=== PATIENT | female | born 2000 | race Two or more races ===

== ENCOUNTER 2023-09-09 11:28 | Inpatient (IN) | payer MEDICAID, OTHER ==
[~2023-09-09] VITALS: Ht 167.6 cm; Wt 95.2 kg
[2023-09-09] MEDS: METOPROLOL TARTRATE 25 MG TAB PO SCH (02:45)
[2023-09-09] MEDS: ACETAMINOPHEN 500 MG TAB PO ONE (11:56)
[2023-09-09 11:57] LABS: Basophils # (auto) 0 10 ^3/uL (0-0.2); Basophils % (auto) 0.6 % (0.0-2.0); Eosinophils # (auto) 0 10 ^3/uL (0-0.8); Eosinophils % (auto) 0.2 % (0.0-7.0); Hematocrit 39.4 % (36.0-46.0); Hemoglobin 13.2 g/dL (12.2-16.2); Lymphocytes # (auto) 0.5 10 ^3/uL (0.4-5.4); Lymphocytes % (auto) 13.5 % (10.0-50.0); Mean Corpuscular Hemoglobin 30.2 pg (28.0-32.0); Mean Corpuscular Hgb Conc. 33.6 g/dL (32.0-36.0); Monocytes # (auto) 0.3 10 ^3/uL (0-1.3); Monocytes % (auto) 8.3 % (0.0-12.0); Neutrophils # (auto) 2.9 10 ^3/uL (1.6-8.6); Neutrophils % (auto) 77.4 % (37.0-80.0); Nucleated Red Blood Cells % 0.2 %; Red Blood Cells 4.37 10^6/uL (4.0-5.20); Red Cell Distribution Width 12.8 % (11.8-14.3); White Blood Cell 3.7 10^3/uL (4.4-10.8)
[2023-09-09 12:03] LABS: Urine Bacteria None Seen /hpf (None Seen)
[2023-09-09 12:08] LABS: Urine Blood Negative /uL (Negative); Urine Clarity Clear (Clear); Urine Color Light-Yellow (Yellow); Urine Protein, UAD Negative (Negative); Urine Specific Gravity 1.012 (1.001-1.035); Urine Urobilinogen Normal (Negative); Urine WBC 1 /hpf (0 - 5)
[2023-09-09 12:18] LABS: Chloride 106 mmol/L (98-107); Potassium 3.8 mmol/L (3.5-5.1); Sodium 138 mmol/L (136-145)
[2023-09-09 12:19] LABS: Anion Gap 8 (5-15); Calcium 9.6 mg/dL (8.5-10.1); Carbon Dioxide 24 mmol/L (20-30)
[2023-09-09 12:24] LABS: BUN/Creatinine Ratio 7.9 (10.0-20.0); Blood Urea Nitrogen 6 mg/dL (9-23); Glucose 113 mg/dL (74-106)
[2023-09-09] MEDS: cefTRIAXone 1GM/50ML D5W 50 ML IV ONE (12:43)
[2023-09-09] MEDS: IOHEXOL 350 MG/ML 100ML IJ ONE (12:48)
[2023-09-09] MEDS ORDERED: HYDROcodone-ACET 5/325MG TAB PO PRN (14:45)
[2023-09-09] MEDS ORDERED: ONDANSETRON HCL 4 MG/2 ML VIAL IV PRN (14:45)
[2023-09-09] MEDS ORDERED: MORPHINE SULFATE INJ 2 MG/ml SYRG IV PRN (14:45)
[2023-09-09] MEDS: SODIUM CHLORIDE 0.9% 1,000 ML IV SCH (15:15)
[2023-09-09] MEDS: SODIUM CHLORIDE 0.9% 1,800 ML IV ONE (15:59)
[2023-09-09] MEDS: PANTOPRAZOLE 40 MG/10 ML VIAL INJ IV ONE (16:04)
[2023-09-09 16:05] LABS: Magnesium 1.8 mg/dL (1.6-2.6)
[2023-09-09] MEDS: MAGNESIUM OXIDE 400 MG TAB PO ONE (16:05)
[2023-09-09] MEDS: METOPROLOL TARTRATE 25 MG TAB PO ONE (16:05)
[2023-09-09] MEDS: AZITHROMYCIN 500MG/ 250ML 250 ML IV ONE (16:10)
[2023-09-09 16:26] VITALS: PULSE 91; RESP 18; O2SAT 98
[2023-09-09 16:30] LABS: Erythrocyte Sedimentation Rate 11 mm/hr (0-20)
[2023-09-09 18:05] LABS: Amphetamine Screen, Urine Neg (NEGATIVE)
[2023-09-09 18:06] LABS: Barbiturate Scree,Urine Neg (NEGATIVE); Benzodiazephine Screen, Urine Neg (NEGATIVE); Cocaine Screen, Urine Neg (NEGATIVE); Opiate Scree,Urine Neg (NEGATIVE); Phencyclidine Screen, Urine Neg (NEGATIVE)
[2023-09-09 18:07] LABS: Cannabinoid Screen, Urine Neg (NEGATIVE)
[2023-09-09 19:49] LABS: COVID19 ANTIGEN SOFIA FIA NEGATIVE (NEGATIVE)
[2023-09-09] MEDS: ACETAMINOPHEN 325 MG TAB PO PRN (20:47)
[2023-09-10] VITALS (9 sets, daily range): BP systolic 103–126; BP diastolic 60–80; PULSE 70–107; RESP 16–21; TEMP 97.7–99; O2SAT 97–100
[2023-09-10] MEDS: ACETAMINOPHEN 325 MG TAB PO PRN (04:30)
[2023-09-10 05:14] LABS: Basophils # (auto) 0 10 ^3/uL (0-0.2); Basophils % (auto) 0.4 % (0.0-2.0); Eosinophils # (auto) 0 10 ^3/uL (0-0.8); Eosinophils % (auto) 0.2 % (0.0-7.0); Hematocrit 35.6 % (36.0-46.0); Hemoglobin 11.8 g/dL (12.2-16.2); Lymphocytes # (auto) 0.7 10 ^3/uL (0.4-5.4); Mean Corpuscular Hemoglobin 30.1 pg (28.0-32.0); Mean Corpuscular Hgb Conc. 33.2 g/dL (32.0-36.0); Mean Corpuscular Volume 90.6 fL (80.0-100.0); Monocytes # (auto) 0.6 10 ^3/uL (0-1.3); Monocytes % (auto) 14.1 % (0.0-12.0); Neutrophils # (auto) 2.8 10 ^3/uL (1.6-8.6); Neutrophils % (auto) 69.3 % (37.0-80.0); Nucleated Red Blood Cells % 0.1 %; Red Blood Cells 3.92 10^6/uL (4.0-5.20); Red Cell Distribution Width 12.6 % (11.8-14.3); White Blood Cell 4.1 10^3/uL (4.4-10.8)
[2023-09-10 05:33] LABS: Alanine Aminotransferase 27 U/L (7-40); Alkaline Phosphatase 63 U/L (46-116); Anion Gap 8 (5-15); Aspartate Aminotransferase 21 U/L (13-40); BUN/Creatinine Ratio 6.9 (10.0-20.0); Blood Urea Nitrogen 5 mg/dL (9-23); Carbon Dioxide 22 mmol/L (20-30); Chloride 109 mmol/L (98-107); Glucose 93 mg/dL (74-106); Magnesium 1.6 mg/dL (1.6-2.6); Potassium 3.9 mmol/L (3.5-5.1); Sodium 139 mmol/L (136-145)
[2023-09-10 05:34] LABS: Bilirubin, Total 0.4 mg/dL (0.2-1.0); Total Protein 6.6 g/dL (5.7-8.2)
[2023-09-10] MEDS: cefTRIAXone 1GM/50ML D5W 50 ML IV SCH (08:36)
[2023-09-10] MEDS: PANTOPRAZOLE 40 MG/10 ML VIAL INJ IV SCH (10:14)
[2023-09-10] MEDS: AZITHROMYCIN 500MG/ 250ML 250 ML IV SCH (10:15)
[2023-09-10] MEDS: MAGNESIUM OXIDE 400 MG TAB PO SCH (10:28)
[2023-09-10] MEDS: SODIUM CHLORIDE 0.9% 1,000 ML IV SCH (15:45)
[2023-09-11 04:47] VITALS: BP 110/67; PULSE 71; RESP 16; TEMP 98.3; O2SAT 97
[2023-09-11 08:00] VITALS: PULSE 87
[2023-09-11 09:00] VITALS: BP 123/70; PULSE 61; RESP 16; TEMP 98.7; O2SAT 99
[2023-09-11] MEDS ORDERED: AZIT500T66 PO (09:31)
[2023-09-11 11:23] VITALS: BP 123/70; PULSE 77; TEMP 37.1
[2023-09-11 12:49] VITALS: BP 102/56; PULSE 79; RESP 20; TEMP 98.4; O2SAT 94
== END 2023-09-11 13:55 | disposition home or self-care (01) | DRG 249 ==
LOC: ER 11:28 → TELE-CENTR 15:06 → TELE 15:20 → TELE-CENTR 09-10 04:07
PROVIDERS: ADMIT Registered Nurse; ATTEND Family Medicine
DX: A05.9 Bacterial foodborne intoxication, unspecified (principal); K76.0 Fatty (change of) liver, not elsewhere classified; N12 Tubulo-interstitial nephritis, not specified as acute or chronic; Z20.822 Contact with and (suspected) exposure to COVID-19; K52.9 Noninfective gastroenteritis and colitis, unspecified; R79.89 Other specified abnormal findings of blood chemistry
CPT/HCPCS: 36415; 71275; 80048; 80053; 80307; 81001; 83605; 83735; 84450; 84460; 84702; 85025; 85379; 85652; 86141; 87040; 87426; 93005; C9113; G0378